=== PATIENT | male | born 1995 | race Caucasian/White ===

== ENCOUNTER 2016-12-15 18:04 | Emergency (ER) | payer OTHER ==
[2016-12-15 18:37] VITALS: RESP 18
--- NOTE | 2016-12-15 20:35 | ED ---
General Adult HPI - General Chief complaint: GI Bleed Stated complaint: DIETARY PROBLEMS Time Seen by Provider: 12/15/16 20:02 Source: patient, RN notes reviewed Mode of arrival: ambulatory Limitations: no limitations - History of Present Illness Initial comments: Chief complaint and history of present illness a 21-year-old male to complaint of rectal bleeding. Patient reports 3 months ago small amount of bleeding again several weeks ago and again today. He reports he wipes himself and he keeps getting blood. - Related Data Home Medications Medication Instructions Recorded Confirmed Albuterol Inhaler [Ventolin Hfa 1 puff INHALATION RT-Q4H PRN 12/15/16 12/15/16 Inhaler] Multivitamins, Thera [Multivitamin 1 tab PO DAILY 12/15/16 12/15/16 (formulary)] Triamcinolone 0.1% Cream [Kenalog] 1 applicatio TOPICAL TID 12/15/16 12/15/16 Allergies Allergy/AdvReac Type Severity Reaction Status Date / Time mold Allergy Unknown Verified 12/15/16 20:06 Review of Systems ROS Statement: Those systems with pertinent positive or pertinent negative responses have been documented in the HPI. Review of systems; patient denies headache chest pain shows breath GI/ problems other than that noted in his chief complaint. All systems are reviewed. Past medical problems patient denies any significant medical problems other than asthma. Surgeries appendectomy. He does state he has lost probably 10 pounds over the last several months. Family history and close liver cancer. Patient has no known ALLERGIES. He uses alcohol occasionally. Smokes marijuana. Nonsmoker otherwise. ROS Other: All systems not noted in ROS Statement are negative. Past Medical History Past Medical History: Asthma History of Any Multi-Drug Resistant Organisms: None Reported Past Surgical History: Appendectomy Past Psychological History: No Psychological Hx Reported Smoking Status: Never smoker Past Alcohol Use History: Occasional Past Drug Use History: Marijuana General Exam - General Exam Comments Initial Comments: General: The patient is awake and alert, in no distress, and does not appear acutely ill. No signs show temperature 98.2 pulse 73 respiratory rate 18 pulse ox on percent room air blood pressure 127/77 Eye: Pupils are equal, round and reactive to light, extra-ocular movements are intact ; there is normal conjunctiva bilaterally. No signs of icterus. Ears, nose, mouth and throat: There are moist mucous membranes and no oral lesions. Neck: The neck is supple, there is no tenderness or JVD. Cardiovascular: There is a regular rate and rhythm. No murmur, rub or gallop is appreciated. Respiratory: Lungs are clear to auscultation, respirations are non-labored, breath sounds are equal. No wheezes, stridor, rales, or rhonchi. Gastrointestinal: Soft, non-distended, non-tender abdomen without masses or organomegaly noted. There is no rebound or guarding present. No CVA tenderness. Bowel sounds are unremarkable. Examination showed no evidence of any blood on the examining finger. No fissures appreciated. There was a small hole over the hemorrhoidal vein that had one drop of blood on it which may be responsible for the blood he' s complaining of. She reports that after having had bowel movements he would continue to wipe and still get blood. The patient will be referred on to a general surgeon for a colonoscopy. he denies any trauma to the rectum. Back: No complaint of back pain. Patient does have a small area of excoriation in the mid back. Does not appear to be anything specific. Musculoskeletal: Normal ROM, no tenderness, There is no pedal edema. There is no calf tenderness or swelling. Sensation intact. Neurological: No complaint of any evidence of any neuro deficits. Patient denies any weakness or problems. Skin: Irritated skin noted over the lumbar area appears as though his irritated by scratching the area. No signs of infection.. Limitations: no limitations Course Vital Signs 12/15/16 18:34 Temperature 98.2 F Pulse Rate 76 Respiratory 18 Rate Blood Pressure 127/77 O2 Sat by Pulse 100 Oximetry Medical Decision Making - Medical Decision Making Vital decision making. Appears though the patient has a small hole over hemorrhoidal vein which could well have bled earlier. The patient will be referred on to general surgery for evaluation and possible colonoscopy. Disposition Clinical Impression: Bleeding hemorrhoid Disposition: HOME SELF-CARE Condition: Fair Instructions: Hemorrhoids (ED), Rectal Bleeding (ED) Additional Instructions: Continue balance diet. Follow-up with family physician if he don't have one then follow-up with Dr. Dean. Also follow-up with on-call general surgeon Dr. quarles. Referrals: None,Stated [Primary Care Provider] - 1-2 days Kmaari Dean MD [STAFF PHYSICIAN] - 1-2 days Brenton Quarles MD [STAFF PHYSICIAN] - 1-2 days Time of Disposition: 20:41
[2016-12-15 21:06] VITALS: BP 122/60; PULSE 84; TEMP 98.3
== END 2016-12-15 21:02 | disposition home or self-care (01) ==
LOC: EC 18:04
DX: K64.9 Unspecified hemorrhoids (principal); Z79.899 Other long term (current) drug therapy; Z91.09 Other allergy status, other than to drugs and biological substances
CPT/HCPCS: 99284